=== PATIENT | male | born 1955 | race Caucasian/White ===

== ENCOUNTER 2024-03-31 05:31 | Observation (INO) ==
[~2024-03-31 05:31] MED LIST: Naloxone 0.4 mg VIAL 0.4 mg/ml 1 ml VIAL IV PRN; Ondansetron 4 mg VIAL 2 MG/ML 2 ml VIAL IV PRN
[2024-03-31] MEDS: Buffered Lidocaine 1% SYRIN 1 ml INTRADERM ONE (05:57)
[2024-03-31] MEDS: Lactated Ringers 1000 ml BAG 1,000 ML IV SCH (06:29)
[2024-03-31] MEDS ORDERED: Ondansetron 4 mg VIAL 2 MG/ML 2 ml VIAL IV PRN (07:04)
[2024-03-31] MEDS ORDERED: Midazolam 2 mg/2 ml VIAL 1 mg/ml 2 ml VIAL (2 mg) ONE (07:14)
[2024-03-31] MEDS ORDERED: fentaNYL 100 mcg/2 ml 50 MCG/ML VIAL ONE ×3 (07:14→08:53)
[2024-03-31] MEDS ORDERED: Lidocaine 2% PF 5 ML VIAL ONE (07:16)
[2024-03-31] MEDS ORDERED: Propofol 10 MG/ML 20 ML BTL ONE (07:16)
[2024-03-31] MEDS ORDERED: Ondansetron 4 mg VIAL 2 MG/ML 2 ml VIAL ONE (07:41)
[2024-03-31] MEDS ORDERED: Dexamethasone IV 4 MG/ML VIAL 1 ml VIAL ONE (07:41)
[2024-03-31] MEDS ORDERED: Glycopyrrolate IV 0.2 MG/ML 1 ML VIAL ONE (07:46)
[2024-03-31] MEDS: fentaNYL 100 mcg/2 ml 50 MCG/ML VIAL IV PRN (08:54)
[2024-03-31] MEDS: GENTAMICIN ADULT IVPB ONE (10:23)
[2024-03-31] MEDS: NS 0.9% IVPB ONE (10:23)
[2024-03-31] MEDS: Ampicillin ADVAN 2 GM in NS 0.9% 100 ML 100 ML IVPB ONE (10:23)
[2024-03-31] MEDS ORDERED: Furosemide 20 mg/2 ml IV VIAL ONE (10:49)
[2024-03-31] MEDS: Sodium Bicarb 650 mg (ANTACID) TAB PO SCH (11:13)
[2024-03-31] MEDS: Isosorbide Mononit ER 30mg TAB PO SCH (11:13)
[2024-03-31] MEDS: NS 0.9% 1000 ml BAG 1,000 ML IV SCH (11:15)
[2024-03-31] MEDS: Magnesium Hydroxide LIQ 30 ML UDC PO SCH (11:15)
[2024-03-31] MEDS: Neomycin/Polym/Bacit TOP OINT 15 GM TOPICAL SCH (11:22)
[2024-03-31 12:28] LABS: Rapid COVID-19 Molecular Undetected (Undetected)
[2024-03-31] MEDS ORDERED: Dextrose 50% Syringe 50 ml 25 GM/50 ML SYRINGE IV PUSH PRN (16:44)
[2024-04-01] MEDS: Aspirin EC 81 mg TAB.EC (enteric coated) PO SCH (08:18)
[2024-04-01 10:05] VITALS: BP 166/64
== END 2024-04-01 10:40 | disposition home or self-care (01) ==
LOC: OR 05:31 → SSU 05:31 → EDSTATUS 07:30
PROVIDERS: ADMIT Urology; ATTEND Urology